=== PATIENT | female | born 1965 | race African-American/Black ===

== ENCOUNTER 2024-09-29 12:01 | Outpatient (AMB) | payer BC, SELFPAY ==
[2024-09-29 12:15] VITALS: BP 129/80; PULSE 86; RESP 16; TEMP 36.4; O2SAT 97; BMI 27.0
--- NOTE | 2024-09-29 12:15 | AMB.GYNCLNOT ---
Vital Signs 09/29/24 12:15 Height 1.55 m Height Method Stated Weight 64.864 kg Weight Measurement Method Standing Scale BMI 27.0 BP 129/80 Blood Pressure Source Automatic Cuff Blood Pressure Location Left Upper Arm Position Sitting Respiration 16 Pulse 86 Pulse Source Monitor Temp 97.5 F Temp Source Oral Pulse Oximetry (%) 97 Oxygen Delivery Method Room Air Allergies/Home Meds Allergies & Medications Allergies acetaminophen (From [place]) Allergy (Verified 09/29/24 12:17) hydrocodone (From [place]) Allergy (Verified 09/29/24 12:17) ibuprofen Allergy (Verified 09/29/24 12:17) Sulfa (Sulfonamide Antibiotics) Allergy (Verified 09/29/24 12:17) Medication Reconciliation estradiol 0.5 mg tablet 0.5 mg PO QDAY 09/29/24 [History Confirmed 09/29/24] Intake Visit Data Collection New Patient or Established: Established Patient (seen at [facility] within 3 years) Reason for Visit:: Discuss hormone treatment Seen by Clinical Staff ONLY (RN/MA): No Wearing Apparel Folder Required: No Do You Feel Safe at Home: Yes Authorities Contacted: N/A PCP or OBGYN visit in last 3 months: No Hx Now: No Are you currently on any form of Control: No Pain Present Currently: No Pain Scale Used: Logan-Haynes/Numerical Pain scale:: 0 Smoking Status Smoking Status: Never smoker 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 1. Little interest or pleasure in doing things: not at all 2. Feeling down, depressed, or hopeless: not at all Total score: 0 PHQ-9 3. Trouble falling or staying asleep, or sleeping too much: Not at all 4. Feeling tired or having little energy: Not at all 5. Poor appetite or overeating: Not at all 6. Feeling bad about yourself - or that you are a failure or have let yourself or your family down: Not at all 7. Trouble concentrating on things, such as reading the newspaper or watching television: Not at all 8. Moving or speaking so slowly that other people could have noticed? - Or the opposite - being so fidgety or restless that you have been moving around a lot more than usual: not at all 9. Thoughts that you would be better off or of hurting yourself in some way: Not at all Total score: 0 Source: Developed by Drs. Sae Gann, Jadyn Shultz, Gibson Alvarado and colleagues, with an educational nichol from [employer]. 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 Tobacco History Smoking Status: Never smoker Second Hand Smoke Exposure: No Alcohol History Alcohol Intake: Never Domestic Abuse History Do You Feel Safe at Home: Yes Past Medical History Past Medical History Have you ever been diagnosed with any of the following: Neurological Problems Seizures: No Guillain-[place] Syndrome: No Murphy's Palsy: No Migraine: No Cardiology Problems Cardiac Arrhythmia: No Heart Murmur: No Atherosclerotic Heart Disease: No Hypercholesterolemia: No Hypertension: No Respiratory Problems Asthma: No Sleep Apnea: No Stomache/Intestinal Problems Gall Bladder Disease: No Irritable Bowel: No Genital/Urinary Problems Renal Disease: No Kidney Stones: No Reproductive Problems Breast Cancer: No Endometriosis: No Fibroids: No Genital Herpes: No Pelvic Inflammatory Disease: No Polycystic Ovarian Syndrome: No Previous Pregnancies: Yes (One term in the past) Musculoskeletal Problems Arthritis: No Rheumatoid Arthritis: No Osteoporosis: No Fibromyalgia: No Head,Eye,Nose,Throat Problems Glaucoma: No Endocrine Problems Diabetes Mellitus Type 2: No Hyperthyroidism: No Hypothyroidism: No Thyroid Cancer: No Parathyroid Disease: No Systemic Lupus Erythematosus: No Blood Problems Anemia: No Sickle Cell Disease: No Psychologic Problems Depression: No Anxiety: No Attention Deficit Disorder: No Other Problems Hospitalization: No Autoimmune Disease: No Blood Transfusions: No Anesthesia Reactions: No Surgical History Appendectomy: No Bariatric Surgery: No Breast Surgery: No Cholecystectomy: No History of Present Illness HPI Narrative The patient is a 59 year old female who used to see me at [facility] and plans to release her records. None are available today. She had some groin and pelvic pain and had a CT and pelvic US in 05/28 that were reported as WNL. Pt used to run marathons but has not been able to exercise secondary to groin pain. She would like a referral to pelvic floor PT. She states she has gained about 20 lbs simce entering menopause. She has tried going to a Chiropractor and regular PT She denies hot flashes, night sweats. Since placing the patient on low dose Estrogen (0.5 mg PO QD) pt states in general all her joints feel much better, She withdraws regularly on PG and needs a refill. She is not due for an annual until the fall of 2024. Her main complaint today is weight gain and she would like labwork orderd for this. She discussed the fact that she feels she has gained weight since being on the HRT, but also that she feels better. We decided after a discussion of risks/benefits to continue her HRT and try to get her into pelvic floor PT. I encourage exercise that does not irritate her groin injury such as swimming. Review of Systems Review of Systems Narrative Review of Systems: Pt reports some weight gain. No hot flases, night sweats, mood instability or vaginal dryness. 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 Her joints feel much better on HRT with the exception of some type of groin injury present over the last 6 months or so. Systems Reviewed: All systems reviewed, normal except as documented Exam Narrative Physical exam: Pt appears to be a healthy weight and has a normal BMI. General Limitations: no limitations General Appearance: alert, in no apparent distress, comfortable, cooperative, healthy appearing and well groomed Neck Neck exam: Present normal inspection, full ROM and trachea midline Chest Chest inspection: Present normal inspection and symmetric chest wall rise Psych Psychiatric exam: Present normal affect and normal mood Skin Skin exam: Present warm, dry, intact and normal color Assessment & Plan Diagnosis / Problem List (1) Pelvic floor instability: Status: Acute Plan: Refer to [facility] for pelvic floor PT (2) Postmenopausal estrogen deficiency: Status: Acute Plan: Refill HRT, Check labs Additional Plan Follow Up: 6 Months Office Procedures OB Clinic LOC & Office Proc's Nursing/Assessment Patient Status: Established Patient OB Clinic Nursing Assessment: Medication Reconciliation, Update PMH in EMR and Vital Signs OB Clinic Coordination of Care: Complex Care and Chronic Disease 1-5, Consent,records obtained, informed consent, Education Simp Pt/Fam, Lab and Imaging orders and Staff clarify orders Established Patient Charge Established Patient Point Assignment: 100 Established Patient Point Charge: EP Level 3 (80-115)
== END 2024-09-29 12:52 | disposition home or self-care (01) ==
LOC: HODSOBC 12:01
PROVIDERS: PCP Family Medicine; Referring Provider Family Medicine; Supervising Provider Obstetrics & Gynecology; Visit Provider Obstetrics & Gynecology
DX: N95.1 Menopausal and female climacteric states (principal); M62.89 Other specified disorders of muscle
CPT/HCPCS: 99213; G0463

== ENCOUNTER 2025-06-22 09:21 | Outpatient (AMB) | payer BC, SELFPAY ==
--- NOTE | 2025-06-22 09:28 | GYNCLNT_ITS ---
Vital Signs 06/22/25 09:31 Height 1.55 m Height Method Stated Weight 61.235 kg Weight Measurement Method Standing Scale BMI 25.4 BP 118/75 Blood Pressure Source Automatic Cuff Blood Pressure Location Left Upper Arm Position Sitting Respiration 18 Pulse 75 Pulse Source Monitor Temp 98.2 F Temp Source Oral Pulse Oximetry (%) 98 Oxygen Delivery Method Room Air Allergies/Home Meds Allergies & Medications Allergies acetaminophen (From [place]) Allergy (Verified 06/22/25 09:32) hydrocodone (From [place]) Allergy (Verified 06/22/25 09:32) ibuprofen Allergy (Verified 06/22/25 09:32) Sulfa (Sulfonamide Antibiotics) Allergy (Verified 06/22/25 09:32) Medication Reconciliation estradiol 0.5 mg tablet 0.5 mg PO QDAY #90 tabs 10/09/24 [Rx Confirmed 06/22/25] progesterone micronized 200 mg capsule (Prometrium) 200 mg PO QHS 10 days #30 caps 10/09/24 [Rx Confirmed 06/22/25] estradiol 0.05 mg/24 hr semiweekly transdermal patch (Vivelle-Dot) 1 patch transdermal .biweekly 3 months #8 ea 06/22/25 [Rx] progesterone micronized 200 mg capsule 200 mg PO QHS 10 days #30 caps 06/22/25 [Rx] Intake Visit Data Collection New Patient or Established: Established Patient (seen at [facility] within 3 years) 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 Seen by Clinical Staff ONLY (RN/MA): No Yardage Tufting Machine Operator Required: No Do You Feel Safe at Home: Yes Authorities Contacted: N/A PCP or OBGYN visit in last 3 months: Yes Date of Last PCP or OBGYN visit: 09/29/24 Hx Now: No Are you currently on any form of Control: No Pain Present Currently: No Pain Scale Used: Logan-Haynes/Numerical Pain scale:: 0 Smoking Status Smoking Status: Never smoker Immunizations Flu Vaccine in the Last 12 Months: No Flu Vaccine Exclusion Criteria: No Exclusion Criteria 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 Menstrual regularity: regular Flow: normal Monthly: Yes Menopausal: Yes Currently sexually active: No 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 1. Little interest or pleasure in doing things: not at all 2. Feeling down, depressed, or hopeless: not at all Total score: 0 PHQ-9 3. Trouble falling or staying asleep, or sleeping too much: Not at all 4. Feeling tired or having little energy: Not at all 5. Poor appetite or overeating: Not at all 6. Feeling bad about yourself - or that you are a failure or have let yourself or your family down: Not at all 7. Trouble concentrating on things, such as reading the newspaper or watching television: Not at all 8. Moving or speaking so slowly that other people could have noticed? - Or the opposite - being so fidgety or restless that you have been moving around a lot more than usual: not at all 9. Thoughts that you would be better off or of hurting yourself in some way: Not at all Total score: 0 If you checked off any problems, how difficult have these problems made it for you to do your work, take care of things at home, or get along with other people?: not difficult at all Source: Developed by Drs. Sae Gann, Jadyn Shultz, Gibson Alvarado and colleagues, with an educational nichol from [employer]. Depression screen completed yes Social History Living Situation History Marital Status: Single Lives With: Family Housing: House Housing Other:: Pt is a P.A. Tobacco History Smoking Status: Never smoker Second Hand Smoke Exposure: No Alcohol History Alcohol Intake: Never Domestic Abuse History Do You Feel Safe at Home: Yes History of Present Illness HPI Narrative The patient is a 59 year old female who used to see Dr Santiago at [facility] and plans to release her records. None are available today. She had some groin and pelvic pain and had a CT and pelvic US in 05/28 that were reported as WNL. Pt used to run marathons but has not been able to exercise secondary to groin pain. She would like a referral to pelvic floor PT. She states she has gained about 20 lbs simce entering menopause. She has tried going to a Chiropractor and regular PT She denies hot flashes, night sweats. Since placing the patient on low dose Estrogen (0.5 mg PO QD) pt states in general all her joints feel much better, She withdraws regularly on PG and needs a refill. She is not due for an annual until the fall of 2024. Her main complaint today is weight gain and she would like labwork orderd for this. She discussed the fact that she feels she has gained weight since being on the HRT, but also that she feels better. We decided after a discussion of risks/benefits to continue her HRT and try to get her into pelvic floor PT. I encourage exercise that does not irritate her groin injury such as swimming. She would like to continue her pelvic floor therapy / it has helped but still has areas of numbness she also gets episodes of urge incontinence she feels she can walk better but is not quite there yet she would like a refill of her HRT and understands the risks and benefits Review of Systems Review of Systems Systems Reviewed: All systems reviewed, normal except as documented Exam Narrative Physical exam: alertx 3 well groomed General General Appearance: alert, cooperative and well groomed Head Head exam: atraumatic Office Procedures OBC Clinic LOC & Office Proc's Nursing/Assessment Patient Status: Established Patient OB Clinic Nursing Assessment: Medication Reconciliation, Update PMH in EMR and Vital Signs OB Clinic Coordination of Care: Complex Care and Chronic Disease 1-5, Education Complex Pt/Fam, Consent,records obtained, informed consent, Lab and Imaging orders, Results/Orders obtained and Staff clarify orders Established Patient Charge Established Patient Point Assignment: 110 Established Patient Point Charge: EP Level 3 (80-115) Assessment & Plan Diagnosis / Problem List (1) Pelvic floor instability: Status: Acute (2) Postmenopausal estrogen deficiency: Status: Acute (3) Breast cancer screening: Status: Acute Qualifiers: Breast cancer screening modality: mammogram Qualified Code(s): Z12.31 - Encounter for screening mammogram for malignant neoplasm of breast Assessment and Plan: She would like to continue her pelvic floor therapy / it has helped but still has areas of numbness she also gets episodes of urge incontinence she feels she can walk better but is not quite there yet she would like a refill of her HRT and understands the risks and benefits referred for pelvic floor therapy to Caryl Ledesma / Pelvic floor physical therapist refills on Estradiol patch and oral prometrium given/ patient does not wish to try a lower dose patch / annual Mammogram ordered follow up in 3 to 4 months for pap/ pelvic exam
[2025-06-22 09:31] VITALS: BP 118/75; PULSE 75; RESP 18; TEMP 36.8; O2SAT 98; BMI 25.4
== END 2025-06-22 10:16 | disposition home or self-care (01) ==
LOC: HODSOBC 09:21
PROVIDERS: PCP Family Medicine; Referring Provider Family Medicine; Supervising Provider Obstetrics & Gynecology; Visit Provider Obstetrics & Gynecology
DX: N94.89 Other specified conditions associated with female genital organs and menstrual cycle (principal); N95.8 Other specified menopausal and perimenopausal disorders; E28.39 Other primary ovarian failure; Z79.890 Hormone replacement therapy; Z88.6 Allergy status to analgesic agent; Z88.5 Allergy status to narcotic agent; Z88.2 Allergy status to sulfonamides
CPT/HCPCS: 99213; G0463